=== PATIENT | female | born 1985 | race African-American/Black ===

== ENCOUNTER 2018-04-28 19:50 | Emergency (ER) | payer OTHER ==
[~2018-04-28] VITALS: Ht 180.3 cm; Wt 133.8 kg
[~2018-04-28 19:50] MED LIST: NAPR-54 PO; PRON INH
[2018-04-28 20:01] VITALS: BP 108/66
--- NOTE | 2018-04-28 20:02 | NUR ---
PATIENT AMBULATED WITH STEADY GAIT TO ER BED 7.
[2018-04-28] MEDS ORDERED: ALBUTEROL SULFATE/IPRATROPIU 3 ML SOL IH ONE (20:05)
[2018-04-28] MEDS ORDERED: methylPREDNISolone SS 125 MG/2 ML VIAL IM ONE (20:05)
--- NOTE | 2018-04-28 20:05 | NUR ---
PATIENT PRESENTS TO ED WITH SOB X30 MIN. PT STATES DENIES N/V/D; SKIN IS PINK/WARM/DRY; AAOX4 WITH EVEN AND STEADY GAIT; LUNGS CLEAR BL; HR EVEN AND REGULAR; PT DENIES ANY FEVER, CP, OR COUGH AT THIS TIME; PATIENT STATES PAIN OF 0/10 AT THIS TIME; VSS; PATIENT POSITIONED FOR COMFORT; HOB ELEVATED; BEDRAILS UP X1; BED DOWN. ER MD MADE AWARE OF PT STATUS.
--- NOTE | 2018-04-28 20:12 | NUR ---
RT AT BEDSIDE FOR INTERVENTION.
[2018-04-28 21:10] VITALS: BP 115/64
--- NOTE | 2018-04-28 21:10 | NUR ---
Patient discharged with v/s stable. Written and verbal after care instructions given and explained. Patient alert, oriented and verbalized understanding of instructions. Ambulatory with steady gait. All questions addressed prior to discharge. ID band removed. Patient advised to follow up with PMD. Rx of ALBUTEROL, PREDNISON given. Patient educated on indication of medication including possible reaction and side effects. Opportunity to ask questions provided and answered.
== END 2018-04-28 21:10 | disposition home or self-care (01) ==
LOC: MED 19:50
DX: J45.901 Unspecified asthma with (acute) exacerbation (principal); F17.210 Nicotine dependence, cigarettes, uncomplicated; E66.01 Morbid (severe) obesity due to excess calories; Z68.41 Body mass index [BMI] 40.0-44.9, adult
CPT/HCPCS: 94640; 96372; 99283; J2930; J7620

== ENCOUNTER 2019-07-13 11:24 | Observation (INO) | payer OTHER ==
[~2019-07-13] VITALS: Ht 175.3 cm; Wt 142.4 kg
[2019-07-13 11:50] VITALS: BP 159/93
--- NOTE | 2019-07-13 11:54 | NUR ---
urine cup handed to pt for sample
--- NOTE | 2019-07-13 11:56 | NUR ---
PT AMBULATED TO ER BED 3
--- NOTE | 2019-07-13 12:32 | NUR ---
33/f bib self c/o sudden onset of epigastric pain with n/v x today. hx--asthma. PATIENT STATES PAIN OF 10/10 AT THIS TIME. PATIENT POSITIONED FOR COMFORT; HOB ELEVATED; BEDRAILS UP X1; BED DOWN. ER MD MADE AWARE OF PT STATUS.
[2019-07-13] MEDS ORDERED: NACL 0.9% 1,000 ML IV SCH (13:00)
[2019-07-13] MEDS ORDERED: KETOROLAC 30 MG/ML VIAL IVP ONE (13:00)
[2019-07-13] MEDS ORDERED: FAMOTIDINE 20 MG/2 ML VIAL IVP ONE (13:00)
[2019-07-13] MEDS ORDERED: ONDANSETRON 4 MG/2 ML VIAL IVP ONE ×2 (13:00→15:30)
[2019-07-13 13:25] LABS: BASOPHILS # (AUTO) 0.1 K/uL (0.00-0.22); BASOPHILS % (AUTO) 0.8 % (0.0-2.0); EOSINOPHILS # (AUTO) 0.1 K/uL (0-0.4); EOSINOPHILS % (AUTO) 1.1 % (0.0-4.0); HEMOGLOBIN 12.5 g/dL (12.0-16.0); LYMPHOCYTES # (AUTO) 1.9 K/uL (2.5-16.5); LYMPHOCYTES % (AUTO) 17.9 % (20.5-51.1); MEAN CORPUSCULAR HEMOGLOBIN 26 pg (27-31); MEAN CORPUSCULAR HGB CONC 32 g/dL (33-37); MEAN CORPUSCULAR VOLUME 80.7 fL (80-94); MONOCYTES # (AUTO) 0.4 K/uL (0.8-1.0); MONOCYTES % (AUTO) 4.1 % (1.7-9.3); NEUTROPHILS % (AUTO) 76.1 % (42.2-75.2); PLATELET COUNT (AUTO) 297 K/uL (140-450); RED BLOOD CELL COUNT(AUTO) 4.83 MIL/uL (4.20-5.40); RED CELL DISTRIBUTION WIDTH 16.7 % (11.6-13.7); WHITE BLOOD COUNT (AUTO) 10.5 K/uL (4.8-10.8)
[2019-07-13 13:31] LABS: ANION GAP 13.1 (8-16); CARBON DIOXIDE 26.5 mmol/L (21-32); CREATININE 0.9 mg/dL (0.6-1.3); POTASSIUM 3.6 mmol/L (3.5-5.1)
[2019-07-13 13:37] LABS: ALBUMIN 3.1 g/dL (3.4-5.0); TOTAL BILIRUBIN 0.4 mg/dL (0.0-1.0)
--- NOTE | 2019-07-13 13:42 | NUR ---
US AT BEDSIDE.
[2019-07-13] MEDS ORDERED: WATER STERILE 0 ML MC ONE (15:22)
[2019-07-13] MEDS ORDERED: MORPHINE SULFATE 4 MG/ML SYR IVP ONE ×3 (15:30→19:30)
--- NOTE | 2019-07-13 17:18 | NUR ---
Patient being reevaluated by DR GARDNER at bedside.
--- NOTE | 2019-07-13 19:06 | NUR ---
Pt report given to NELL CARRILLO. Transfer of care at this time.
[2019-07-13] MEDS ORDERED: ONDANSETRON 4 MG/2 ML VIAL IM/IVP PRN (19:40)
[2019-07-13] MEDS ORDERED: DOCUSATE SODIUM 100 MG GELCAP PO PRN (19:40)
[2019-07-13] MEDS ORDERED: HYDROcodone/APAP 7.5/325 MG 1 TAB PO PRN (19:40)
[2019-07-13] MEDS ORDERED: DEXT 5% / NACL 0.45% 1,000 ML IV ONE (19:40)
[2019-07-13] MEDS ORDERED: ACETAMINOPHEN 325 MG TAB PO PRN (19:40)
[2019-07-13] MEDS ORDERED: cefTRIAXone 1,000 MG VIAL ONE (20:04)
--- NOTE | 2019-07-13 20:20 | NUR ---
PT ADMITTED TO [facility] RM 111A. TRANSFERRED PT VIA [facility]. REPORT GIVEN TO JACINDA CARRILLO, PT CARE TRANSFERRED TO RECEIVING RN.
[2019-07-13 20:25] VITALS: BP 132/75
--- NOTE | 2019-07-13 20:25 | NUR ---
RECEIVED BEDSIDE REPORT FROM NELL MEADE RN. PT IS AAOX4 ON ROOM AIR. RESPIRATIONS ARE EQUAL AND UNLABORED. SKIN IS INTACT. PT ARRIVED ON GURNEY WALKED TO BED WITH STEADY GAIT. PER RN PT RECEIVED ROCEPHIN IN ER. PT IV ON R HAND 22G INFUSING D5 1/2 NS AT 150M/H. ORDER FOR NPO. MED STUDENT IN TO ASSESS PT. MRSA SWAB OBTAINED. VS: 132/75, 72, 99% 98.5 RR 17. ORIENTED PT TO ROOM, VISITING HOURS, CALL LIGHT, AND STAFF. POC DISCUSSED. WILL ROUND FREQUENTLY.
[2019-07-13 20:51] LABS: MAGNESIUM 1.8 mg/dL (1.8-2.4)
[2019-07-13 20:52] LABS: CHOL/HDL RATIO 1.5 (1-4.5); FREE T4 (FREE THYROXINE) 1.09 ng/dL (0.76-1.46); PHOSPHORUS 2.4 mg/dL (2.5-4.9)
[2019-07-13 20:53] LABS: THYROID STIMULATING HORMONE 1.83 uIU/mL (0.34-3.74)
[2019-07-13] MEDS: metroNIDAZOLE 500 MG/NS PREMIX 100 ML IV SCH (21:26)
--- NOTE | 2019-07-13 21:26 | NUR ---
FLAGYL INFUSING PER ORDERS. GAVE PT ICE CHIPS PER REQUEST. WILL CONTINUE TO MONITOR.
[2019-07-13] MEDS: MORPHINE SULFATE 2 MG/ML SYR IVP PRN (21:35)
--- NOTE | 2019-07-13 23:50 | NUR ---
DR SILVESTRE IN TO SEE PATIENT. DR ZEPEDA TO GIVE FULL LIQUID RIGHT NOW THEN KEEP NPO. ORDER FOR HIDA SCAN. FOR TOMORROW AM.
[2019-07-14] VITALS: BP 120/58
--- NOTE | 2019-07-14 | NUR ---
RECEIVED CALL FROM CHAPINCITO FROM [facility] STATES CURRENT IV IS OKAY PT IV ON R HAND 22G. NO MORE OPIOID AFTER 0600 AM. KEEP NPO CHAPINCITO AWARE PT HAVING FULL LIQUID DINNER RIGHT NOW BUT WILL BE NPO AFTER. STATES OKAY. HIDA SCAN WILL BE PERFORMED AROUND 1030 ON 07/14/19.
--- NOTE | 2019-07-14 00:30 | NUR ---
VITAL SIGNS ARE WITHIN NORMAL LIMITS. CALL LIGHT IS WITHIN REACH. WILL CONTINUE TO MONITOR.
--- NOTE | 2019-07-14 02:35 | NUR ---
PT IS SLEEPING COMFORTABLY IN BED. CHEST RISE AND FALL. ALL SAFETY MEASURES ARE IN PLACE. WILL CONTINUE TO MONITOR.
[2019-07-14] MEDS: DEXT 5% / NACL 0.45% 1,000 ML IV SCH ×3 (02:40→16:41)
--- NOTE | 2019-07-14 02:40 | NUR ---
IVF BAG COMPLETE AT 0240. SAFETY MEASURES ARE IN PLACE.
[2019-07-14] MEDS: metroNIDAZOLE 500 MG/NS PREMIX 100 ML IV SCH ×3 (04:02→20:43)
--- NOTE | 2019-07-14 04:08 | NUR ---
FLAGYL AND NEW BAG OF IVF NOW INFUSING PER ORDERS. NO S/S OF DISTRESS. CALL LIGHT IS WITHIN REACH. WILL CONTINUE TO MONITOR.
--- NOTE | 2019-07-14 07:20 | NUR ---
GAVE BEDSIDE REPORT TO DAY RN. PT ENDORSED IN STABLE CONDITION.
--- NOTE | 2019-07-14 07:21 | NUR ---
RECEIVED REPORT FROM BROADCAST MAINTENANCE TECHNICIAN NURSE. PATIENT LYING DOWN IN BED SLEEPING, AROUSABLE BY VOICE. NO DISTRESS NOTED. PAIN WITHIN TOLERABLE AT THIS TIME. AAOX4, CALM, COOPERATIVE, SKIN COLOR APPROPRIATE TO ETHNICITY, WARM TO TOUCH. SKIN INTACT. IV SITE INTACT, PATENT, AND INFUSING IVF PER MD ORDERS. RESPIRATIONS, EVEN, UNLABORED, ON ROOM AIR. REVIEWED PLAN OF CARE WITH PATIENT. PATIENT VERBALIZED UNDERSTANDING. SAFETY MEASURES IN PLACE, CALL LIGHT WITHIN REACH. WILL CONTINUE TO MONITOR.
[2019-07-14 08:00] VITALS: BP 114/60
[2019-07-14] MEDS ORDERED: KETOROLAC 15 MG/ML VIAL IM SCH (08:33)
--- NOTE | 2019-07-14 08:34 | NUR ---
PATIENT HAS BEEN SCREENED AND CATEGORIZED HIGH NUTRITION RISK. PATIENT WILL BE SEEN WITHIN 1-2 DAYS OF ADMISSION. 07/14/19-07/15/[address]
--- NOTE | 2019-07-14 08:45 | NUR ---
PATIENT COMPLAINS OF ABD PAIN. TORADOL GIVEN PER MD ORDERS. HEPARIN SUB-Q NOT GIVEN AT THIS TIME DUE POSSIBLE SURGERY LATER TODAY. WILL CONTINUE TO MONITOR.
[2019-07-14 09:06] LABS: T4 (THYROXINE) 7.8 ug/dL (4.5-12.0)
--- NOTE | 2019-07-14 11:00 | NUR ---
NM Bitly ON UNIT TO TAKE PATIENT FOR HIDA SCAN. WILL CONTINUE TO MONITOR WHEN PATIENT RETURNS ON UNIT.
--- NOTE | 2019-07-14 12:01 | NUR ---
SW attempted to conduct assessment with patient. Per GERARDO Crandall, patient was receiving an x-ray. SW will follow up.
[2019-07-14] MEDS: MORPHINE SULFATE 2 MG/ML SYR IVP PRN ×2 (12:04→21:30)
--- NOTE | 2019-07-14 12:05 | NUR ---
PATIENT RECEIVING NM HIDA SCAN. PER NM TECH, CHAPINCITO, GIVE MORPHINE AT THIS TIME DURING PROCEDURE TO HELP GET BETTER PICTURES. WILL CONTINUE TO MONITOR.
--- NOTE | 2019-07-14 12:48 | NUR ---
PATIENT BACK FROM HIDA SCAN. NO DISTRESS NOTED. SCHEDULED MEDICATIONS DUE GIVEN. WILL CONTINUE TO MONITOR.
[2019-07-14 13:14] LABS: BARBITURATE, URINE NEGATIVE ng/ml (NEG <=200); BENZODIAZEPINE, URINE NEGATIVE ng/mL (NEG <=200); CANNABINOID, URINE POSITIVE ng/mL (NEG <=50); COCAINE, URINE NEGATIVE ng/mL (NEG <=300); OPIATE, URINE POSITIVE ng/mL (NEG <=2000); PHENCYCLIDINE SCREEN,URINE NEGATIVE ng/mL (NEG <=25)
--- NOTE | 2019-07-14 14:49 | NUR ---
PATIENT LYING DOWN IN BED TALKING ON THE PHONE. NO DISTRESS NOTED. DENIES ANY PAIN AT THIS TIME. WILL CONTINUE TO MONITOR.
[2019-07-14 16:00] VITALS: BP 96/55
--- NOTE | 2019-07-14 16:20 | NUR ---
CALL MADE TO THE INSURANCE [facility] WITH MICHELLE CM [phone] NOTIFIED HER THAT PT NEEDS TO BE TRANSFERRED TO HIGHER LEVEL OF CARE FOR CHOLECYSTITIS WITH BARIATRIC SURGERY CAPABILITY, PER MICHELLE PT SHOULD HAVE BEEN TRANSFERRED FROM THE ER WHEN THEY CALLED BACK TO GIVE THE ACCEPTING FACILITY. WILL LOOK FOR A CONTRACTED FACILITY AND WILL CALL BACK . PROVIDE DR AUGUST'S NUMBER FOR [facility] AND MICHELLE STATED THE TRANSFER MAY BE TOMORROW DUE TO NON URGENT.
--- NOTE | 2019-07-14 17:00 | NUR ---
PATIENT LYING DOWN IN BED PLAYING ON HER PHONE. NO DISTRESS NOTED. CONDITION UNCHANGED. WILL CONTINUE TO MONITOR.
--- NOTE | 2019-07-14 18:46 | NUR ---
PATIENT LYING DOWN ON HER PHONE. CONDITION UNCHANGED. WILL CONTINUE TO MONITOR.
--- NOTE | 2019-07-14 19:11 | NUR ---
GAVE REPORT TO CHEMICAL PROJECT ENGINEER NURSE FOR CONTINUITY OF CARE. PATIENT IN STABLE CONDITION.
--- NOTE | 2019-07-14 19:12 | NUR ---
RECEIVED BEDSIDE REPORT FROM DAY RN. PT IS AAOX4 ON ROOM AIR. RESPIRATIONS ARE EQUAL AND UNLABORED. SKIN IS INTACT. PT AMBULATORY ABLE TO MAKE HER NEEDS KNOWN. PT IV ON R HAND 22G INFUSING D5 1/2 NS AT 70M/H. ORDER FOR NPO. PT COMPLAINING BEING HUNGRY. EDUCATED PT ON REASON FOR NPO WILL SPEAK TO DOCTOR. POC DISCUSSED. WILL ROUND FREQUENTLY.
--- NOTE | 2019-07-14 20:12 | NUR ---
DR ZEPEDA TO GIVE REGULAR DIET NOW AND KEEP NPO AFTER MIDNIGHT. GAVE TURKEY SANDWICH TO PT WITH APPLE JUICE. WILL CONTINUE TO MONITOR.
--- NOTE | 2019-07-14 20:43 | NUR ---
OMAR EUCEDAYL NOW INFUSING PER ORDERS. HELD HEPARIN D/T POSSIBLE SURGERY TOMORROW. PT BEEN AMBULATING AROUND UNIT AND VISITING A FAMILY MEMBER WHO IS ALSO A PATIENT. PT FINISHED EATING DINNER. DENIES PAIN. ALL NEEDS MET AT THIS TIME. WILL CONTINUE TO MONITOR.
[2019-07-14] MEDS ORDERED: LEVOFLOXACIN 750 MG/D5W PREMIX 150 ML IV SCH (21:00)
--- NOTE | 2019-07-14 21:12 | NUR ---
PATIENT IS IN ROOM 116 VISITING A FAMILY MEMBER. WILL CONTINUE TO MONITOR.
--- NOTE | 2019-07-14 21:30 | NUR ---
ADMINISTERED PRN MORPHINE FOR 8/10 ABDOMEN PAIN. CALL LIGHT IS WITHIN REACH. WILL CONTINUE TO MONITOR.
--- NOTE | 2019-07-14 22:52 | NUR ---
C/C IV DISCOMFORT R HAND IS A LITTLE SWOLLEN. IV CATH REMOVED AND INTACT. WILL KEEP HAND ELEVATED. CHARGE NURSE INSERTED NEW IV ON LEFT WRIST 22 G ON FIRST ATTEMPT. PT TOLERATED WELL. IVF INFUSING PER ORDERS. WILL CONTINUE TO MONITOR.
[2019-07-14 23:40] VITALS: BP 128/57
--- NOTE | 2019-07-14 23:42 | NUR ---
VITAL SIGNS ARE WITHIN NORMAL LIMITS. NO S/S OF DISTRESS. ALL NEEDS MET AT THIS TIME. WILL CONTINUE TO MONITOR.
--- NOTE | 2019-07-15 01:19 | NUR ---
PATIENT IS RESTING COMFORTABLY IN BED WITH EYES CLOSED. CHEST RISE AND FALL. CALL LIGHT IS WITHIN REACH. WILL CONTINUE TO MONITOR.
--- NOTE | 2019-07-15 04:00 | NUR ---
SPOKE WITH DOCTOR REGARDING PT BEING SCHEDULED FOR [facility] TODAY AT 1200 BUT NO ORDER FOR CONSENT. PER DOCTOR, DR SILVESTRE WILL F/U THIS AM REGARDING PERFORMING SURGERY HERE IN [place] OR TRANSFER PT FOR SURGERY. PT REMAINS NPO SINCE MIDNIGHT. VS STABLE, NO FEVER, PAIN IS CONTROLLED WITH MEDICATIONS. WILL CONTINUE TO MONITOR.
[2019-07-15] MEDS: DEXT 5% / NACL 0.45% 1,000 ML IV SCH (04:27)
--- NOTE | 2019-07-15 04:27 | NUR ---
IV FLAGYL NOW INFUSING PER ORDERS. NEW BAG OF IVF NOW INFUSING PER ORDERS. ALL NEEDS MET AT THIS TIME. WILL CONTINUE TO MONITOR.
[2019-07-15] MEDS: metroNIDAZOLE 500 MG/NS PREMIX 100 ML IV SCH ×2 (04:28→12:54)
[2019-07-15] MEDS: MORPHINE SULFATE 2 MG/ML SYR IVP PRN ×2 (05:43→12:33)
--- NOTE | 2019-07-15 07:18 | NUR ---
GAVE BEDSIDE REPORT TO DAY RN. PT ENDORSED IN STABLE CONDITION.
--- NOTE | 2019-07-15 07:25 | NUR ---
RECEIVED REPORT FROM PERSONNEL SCHEDULER NURSE. PATIENT IS SLEEPING IN BED, VISIBLE CHEST RISE AND FALL. IV TO L WRIST 24G WITH D5 1/2 NS INFUSING. SKIN IS INTACT. LBM 07/14. A&O X4. WILL CONTINUE TO MONITOR
[2019-07-15 07:39] LABS: BASOPHILS % (AUTO) 0.6 % (0.0-2.0); EOSINOPHILS # (AUTO) 0.4 K/uL (0-0.4); EOSINOPHILS % (AUTO) 4.7 % (0.0-4.0); HEMATOCRIT 33.4 % (36-48); HEMOGLOBIN 10.6 g/dL (12.0-16.0); LYMPHOCYTES # (AUTO) 2.3 K/uL (2.5-16.5); MEAN CORPUSCULAR HEMOGLOBIN 26 pg (27-31); MEAN CORPUSCULAR HGB CONC 32 g/dL (33-37); MEAN CORPUSCULAR VOLUME 82.2 fL (80-94); MONOCYTES # (AUTO) 0.4 K/uL (0.8-1.0); MONOCYTES % (AUTO) 5.6 % (1.7-9.3); NEUTROPHILS # (AUTO) 4.7 K/uL (1.8-7.7); NEUTROPHILS % (AUTO) 60.1 % (42.2-75.2); PLATELET COUNT (AUTO) 262 K/uL (140-450); RED BLOOD CELL COUNT(AUTO) 4.06 MIL/uL (4.20-5.40); RED CELL DISTRIBUTION WIDTH 16.8 % (11.6-13.7); WHITE BLOOD COUNT (AUTO) 7.9 K/uL (4.8-10.8)
[2019-07-15 07:40] LABS: ALBUMIN 2.4 g/dL (3.4-5.0); CARBON DIOXIDE 29.1 mmol/L (21-32); CREATININE 0.9 mg/dL (0.6-1.3); POTASSIUM 3.1 mmol/L (3.5-5.1); TOTAL BILIRUBIN 0.3 mg/dL (0.0-1.0)
[2019-07-15 07:42] LABS: MAGNESIUM 1.8 mg/dL (1.8-2.4); PHOSPHORUS 2.9 mg/dL (2.5-4.9)
[2019-07-15 08:00] VITALS: BP 120/59
--- NOTE | 2019-07-15 08:57 | NUR ---
HELD MORNING HEPARIN D/T POSSIBLE SX PROCEDURE TODAY.
--- NOTE | 2019-07-15 09:59 | NUR ---
RECEIVED A CALL FROM MICHELLE [facility] ) STATED PT IS ACCEPTED TO [facility] UNDER THE CARE OF DR CORTEZ, TRANSPORTATION WITH [facility] [phone] AND AUTH FOR TRANSPORT [id number] FAXED ALL THE PAPER WORK TO [facility] [phone]. SPOKE WITH BOX OFFICE AGENT ,WORKING ON THE CASE AND WILL CALL US WHEN BED AVAILABLE
--- NOTE | 2019-07-15 10:30 | NUR ---
PATIENT IS RESTING QUIETLY IN BED. FAMILY AT BEDSIDE. PENDING TRANSFER TO [facility]. WILL CONTINUE TO MONITOR AND FOLLOW UP WITH TRUCK ENGINE TECHNICIAN.
--- NOTE | 2019-07-15 10:39 | NUR ---
RECEIVED A CALL FROM [facility] CHIEF SCIENTIFIC OFFICER ,ACCEPTING PT AND DR CORTEZ PT CAN GO TO ROOM 5102 THE # TO GIVE REPORT [phone] ARRANGED TRANSPORT WITH [facility] BLS NETWORK SPECIALIST TIME 1PM NOTIFIED KAYDEN CARRILLO
--- NOTE | 2019-07-15 12:04 | NUR ---
SPOKE TO KHALIDA AT [facility] AND GAVE REPORT ON PATIENT. PATIENTS IV TO L. WRIST WILL REMAIN IN FOR CONTINUITY OF CARE AT [facility]. PATIENT WILL BE IN ROOM 5102. CHIEF MECHANICAL ENGINEER TIME APPROX 1300.
[2019-07-15] MEDS ORDERED: POTASSIUM CHLORIDE 10 MEQ TABER PO SCH (12:30)
--- NOTE | 2019-07-15 12:37 | NUR ---
ADMINISTERED MORPHINE 2MG FOR PAIN AND KDURR PO 40 MEQ FOR K OF 3.1. NOTIFIED KHALIDA AT READING.
--- NOTE | 2019-07-15 13:15 | NUR ---
PATIENT HAS BEEN DISCHARGED WITH EMT TO [facility] IN [place].
== END 2019-07-15 13:15 ==
LOC: MED 11:24 → MTU 19:40
PROVIDERS: ADMIT General Practice; ATTEND General Practice
DX: K80.20 Calculus of gallbladder without cholecystitis without obstruction (principal); R11.2 Nausea with vomiting, unspecified; K64.9 Unspecified hemorrhoids; F17.210 Nicotine dependence, cigarettes, uncomplicated; J45.909 Unspecified asthma, uncomplicated; E66.01 Morbid (severe) obesity due to excess calories; Z68.42 Body mass index [BMI] 45.0-49.9, adult; E46 Unspecified protein-calorie malnutrition; Z59.0 Homelessness
CPT/HCPCS: 36415; 71045; 76705; 78445; 80053; 80061; 80305; 82140; 82150; 83036; 83605; 83690; 83735; 83880; 84100; 84436; 84439; 84443; 84484; 85025; 85610; 85730; 87040; 87081; 87086; 93005; 94760; 96361; 96365; 96366; 96367; 96372; 96375; 96376; 99285; A9510; G0378; J0694; J0696; J1885; J1956; J2270; J2405; J3490; Q0092; J1644

== ENCOUNTER 2019-07-29 08:31 | Emergency (ER) | payer OTHER ==
[~2019-07-29] VITALS: Ht 175.3 cm; Wt 142.4 kg
[2019-07-29 08:44] VITALS: BP 134/70
[2019-07-29 10:07] VITALS: BP 112/72
== END 2019-07-29 10:07 | disposition home or self-care (01) ==
LOC: MED 08:31
DX: Z48.02 Encounter for removal of sutures (principal); J45.909 Unspecified asthma, uncomplicated; Z79.899 Other long term (current) drug therapy
CPT/HCPCS: 99281